=== PATIENT | female | born 1965 | race African-American/Black ===

== ENCOUNTER 2021-04-23 06:31 | Emergency (ER) | payer OTHER ==
[~2021-04-23 06:31] MED LIST: AMOXICILLIN 50500 M1 PO; ASPIR 8181 M1 PO; BENADRYL25 MG PO; CIPRO250 M1 PO; CIPROFLOXACIN500 M1 PO; COLACE100 MG PO; CYMBALTA60 MG PO; DILAUDID2 M1 PO; DILAUDID8 MG PO; FLEXERIL PO; GABAPENTIN; HYDROCODONE-AP1 EAC6 PO; HYDROXYCHLOROQ200 M1 PO; IBUPROFEN 600600 M1 PO; IBUPROFEN 800800 M1 PO; IBUPROFEN 800800 MG PO; LYRICA 75 MG CA75 MG PO; MEDROLDOSEPACK PO; MILK OF MA2400 MG/10 PO; NAPROSYN500 MG PO; NOLVADEX 10MG T10 M1 PO; NOLVADEX20 MG PO; NORCO 5-325 TA1 EACH PO; PAXIL10 MG; PERCOCET 5-3251 EACH PO; PLAQUENIL200 MG PO; PREDNISONE 20 M20 M1 PO; PREDNISONE 20 M20 MG PO; PROAIR HFA8.5 GM INH; PYRIDIUM200 MG PO; TOPAMAX50 MG PO; TRAMADOL 50 MG50 MG PO; TYLENOL325 MG PO; VALIUM5 MG PO; VICODIN 5-3001 EACH PO; VITAMIN C100 M1 PO; VITAMIN E400 UNIT PO; ZOFRAN ODT4 M1 PO
[2021-04-23 07:12] VITALS: BP 159/93
== END 2021-04-23 07:13 | disposition home or self-care (01) ==
LOC: ER 06:31
PROVIDERS: Student in an Organized Health Care Education/Training Program
DX: J06.9 Acute upper respiratory infection, unspecified (principal); Z20.822 Contact with and (suspected) exposure to COVID-19; Z88.5 Allergy status to narcotic agent; Z88.2 Allergy status to sulfonamides; Z91.048 Other nonmedicinal substance allergy status

== ENCOUNTER 2021-10-09 20:02 | Emergency (ER) | payer OTHER, BC ==
[~2021-10-09] VITALS: Ht 162.6 cm; Wt 86.2 kg
[2021-10-09 20:27] LABS: ABSOLUTE NEUTROPHILS 4.7 thou/uL (1.4-8.2); BASOPHILS 0.4 % (0.0-2.0); EOSINOPHILS 6.5 % (0.0-3.0); HEMATOCRIT 35.5 % (37.0-47.0); HEMOGLOBIN 12.1 gm/dL (12.0-15.0); LYMPHOCYTES 30.9 % (24.0-44.0); MCH 30.8 pg (26.0-34.0); MCHC 34.2 g/dL (28.0-37.0); MCV 90.2 fL (80.0-100.0); MONOCYTES 5.9 % (1.0-8.0); PLATELET COUNT 272 thou/uL (150-400); POLYS 56.3 % (36.0-66.0); RBC 3.93 mil/uL (4.20-5.00); RDW 13.2 % (10.5-14.5); WBC 8.3 thou/uL (4.0-11.0)
[2021-10-09 20:34] LABS: CALCIUM 9.1 mg/dL (8.5-10.1); POTASSIUM 3.5 mmol/L (3.5-5.1)
[2021-10-09 20:40] LABS: ALBUMIN 3.7 g/dL (3.4-5.0); TOTAL BILIRUBIN 0.4 mg/dL (0.2-1.0); TOTAL PROTEIN 7.6 g/dL (6.4-8.2)
[2021-10-09 22:13] LABS: URINE BILIRUBIN NEGATIVE (Negative); URINE BLOOD NEGATIVE (Negative); URINE CLARITY CLEAR; URINE COLOR YELLOW; URINE GLUCOSE-RANDOM* NEGATIVE (Negative); URINE KETONES NEGATIVE (Negative); URINE LEUKOCYTES-REFLEX TRACE (Negative); URINE NITRITE-REFLEX NEGATIVE (Negative); URINE PROTEIN (DIPSTICK) NEGATIVE (Negative); URINE SPECIFIC GRAVITY >= 1.030 (1.005-1.035); URINE UROBILINOGEN 0.2 E.U./dl (0.2-1.0)
[2021-10-09] MEDS ORDERED: NORCO7.5 PO (22:39)
[2021-10-09 22:43] VITALS: BP 153/77
== END 2021-10-09 22:54 | disposition home or self-care (01) ==
LOC: ER 20:02
PROVIDERS: Emergency Medicine
DX: M32.8 Other forms of systemic lupus erythematosus (principal); M25.572 Pain in left ankle and joints of left foot; Z85.3 Personal history of malignant neoplasm of breast; Z86.718 Personal history of other venous thrombosis and embolism; Z79.899 Other long term (current) drug therapy; Z88.5 Allergy status to narcotic agent; Z88.6 Allergy status to analgesic agent; Z88.8 Allergy status to other drugs, medicaments and biological substances; Z88.2 Allergy status to sulfonamides; Z91.041 Radiographic dye allergy status